=== PATIENT | male | born 1985 | race African-American/Black ===

== ENCOUNTER 2017-07-03 07:07 | Emergency (ER) | payer MEDICAID ==
[~2017-07-03] VITALS: Ht 165.1 cm; Wt 68.0 kg
[2017-07-03 07:37] VITALS: BP 120/96
== END 2017-07-03 09:15 | disposition left against medical advice (07) ==
LOC: ER 09:15
DX: M79.671 Pain in right foot (principal); Z53.21 Procedure and treatment not carried out due to patient leaving prior to being seen by health care provider

== ENCOUNTER 2022-12-15 19:17 | Inpatient (IN) | payer MEDICAID, OTHER ==
[~2022-12-15] VITALS: Ht 172.7 cm; Wt 74.8 kg
[2022-12-16] MEDS ORDERED: METHYLPREDNISOLONE SOD SUCC 125 MG/2 ML VIAL IV STA (00:05)
[2022-12-16] MEDS ORDERED: IPRATROPIUM BROMIDE (0.02%) 0.5MG/2.5ML NEB HHN STA (00:05)
[2022-12-16] MEDS ORDERED: ALBUTEROL (0.083%) 2.5MG/3ML NEB HHN STA (00:05)
[2022-12-16] MEDS ORDERED: SODIUM CHLORIDE 0.9% 1000ML BAG (SEPSIS BOLUS) IV ONE (00:15)
[2022-12-16] MEDS ORDERED: LEVOFLOXACIN 750MG PREMIX 150 ML IV ONE (01:15)
[2022-12-16 01:16] LABS: BASOPHILS % 0.9 % (0.0-2.0); EOSINOPHILS % 7.9 % (0.0-5.0); HEMATOCRIT. 41.3 % (42.0-52.0); HEMOGLOBIN. 13.8 g/dL (14.0-18.0); LYMPHOCYTES % 31.5 % (20.0-50.0); MEAN CORPUSCULAR HEMOGLOBIN 26.8 pg (28.0-32.0); MEAN PLATELET VOLUME 9.2 fl (7.4-10.4); MONOCYTES % 5.5 % (2.0-8.0); NEUTROPHILS % 54.2 % (40.0-76.0); PLATELET 245 x1000/uL (130-400); RED BLOOD CELL COUNT 5.17 mill/uL (4.7-6.1); RED CELL DISTRIBUTION WIDTH 14.5 % (11.6-14.6)
[2022-12-16 01:18] LABS: CHLORIDE 104 mEq/L (98-107)
[2022-12-16] MEDS: METHYLPREDNISOLONE SOD SUCC 40 MG/ML VIAL IV SCH (17:00)
[2022-12-16] MEDS ORDERED: GUAIFENESIN 200MG/10ML SUGAR FREE UDC PO PRN (17:00)
[2022-12-16] MEDS ORDERED: ACETAMINOPHEN 325MG TABLET PO PRN (17:00)
[2022-12-16] MEDS ORDERED: ONDANSETRON HCL 4MG/2ML INJ IV PRN (17:00)
[2022-12-16] MEDS ORDERED: IPRATROPIUM/ALBUTEROL 0.5-3(2.5)MG/3ML NEB HHN PRN (17:00)
[2022-12-16] MEDS ORDERED: IPRATROPIUM BROMIDE (0.02%) 0.5MG/2.5ML NEB HHN PRN (17:15)
[2022-12-16] MEDS ORDERED: ALBUTEROL (0.083%) 2.5MG/3ML NEB HHN PRN (17:15)
[2022-12-16] MEDS ORDERED: CEFTRIAXONE 1 G PREMIX 50 ML IV SCH (17:30)
[2022-12-16] MEDS ORDERED: AZITHROMYCIN 500MG/250ML 250 ML IV SCH (18:00)
[2022-12-16] MEDS ORDERED: GUAIFENESIN-DM 200MG-20MG/10ML UDC PO PRN (18:45)
[2022-12-16] MEDS ORDERED: FLUTICASONE PROPIONATE 50MCG/SPRAY BOTTLE BOTHNSTRLS SCH (21:00)
[2022-12-16] MEDS: BUDESONIDE 0.5MG/2ML NEB HHN SCH (22:40)
[2022-12-17] MEDS ORDERED: IPRATROPIUM/ALBUTEROL 0.5-3(2.5)MG/3ML NEB HHN SCH
[2022-12-17 00:10] VITALS: BP 122/72
[2022-12-17] MEDS: METHYLPREDNISOLONE SOD SUCC 40 MG/ML VIAL IV SCH ×2 (01:26→09:04)
[2022-12-17 04:00] VITALS: BP 123/78
[2022-12-17 06:59] LABS: BASOPHILS % 0.3 % (0.0-2.0); EOSINOPHILS % 0.1 % (0.0-5.0); HEMATOCRIT. 40.9 % (42.0-52.0); HEMOGLOBIN. 13.5 g/dL (14.0-18.0); LYMPHOCYTES % 13.3 % (20.0-50.0); MEAN CORPUSCULAR HEMOGLOBIN 26.4 pg (28.0-32.0); MEAN PLATELET VOLUME 9.2 fl (7.4-10.4); NEUTROPHILS % 84.3 % (40.0-76.0); PLATELET 239 x1000/uL (130-400); RED BLOOD CELL COUNT 5.11 mill/uL (4.7-6.1); RED CELL DISTRIBUTION WIDTH 14.9 % (11.6-14.6)
[2022-12-17 07:38] LABS: CHLORIDE 102 mEq/L (98-107)
[2022-12-17 08:00] VITALS: BP 112/74
[2022-12-17] MEDS: ALBUTEROL (0.083%) 2.5MG/3ML NEB HHN SCH ×2 (09:50→16:15)
[2022-12-17] MEDS: IPRATROPIUM BROMIDE (0.02%) 0.5MG/2.5ML NEB HHN SCH ×2 (09:50→16:15)
[2022-12-17 12:00] VITALS: BP 138/66
[2022-12-17] MEDS ORDERED: ALBU6.7H3 INH ×2 (12:39→13:57)
[2022-12-17] MEDS ORDERED: P20 MT (12:39)
[2022-12-17] MEDS ORDERED: MED4 MT (13:57)
[2022-12-17] MEDS ORDERED: AZIT250T12 MT (13:57)
[2022-12-17] MEDS ORDERED: CEFTRIAXONE 1,000 MG in DEXTROSE 5% WATER 50 ML IV SCH (14:00)
[2022-12-17] MEDS ORDERED: AZITHROMYCIN 500 MG in DEXT 5% WATER 250 ML IV SCH (15:00)
[2022-12-17 15:40] VITALS: BP 138/66
[2022-12-17 16:00] VITALS: BP 138/66
[2022-12-17] MEDS: BUDESONIDE 0.5MG/2ML NEB HHN SCH (16:15)
== END 2022-12-17 17:45 | disposition home or self-care (01) | DRG 139 ==
LOC: ER 19:17 → MICUSO 12-16 01:40 → EDBEDREQ 12-16 01:43 → EDBEDREQTM 12-16 01:43 → 6EST 12-17 00:13
PROVIDERS: ADMIT Internal Medicine; ATTEND Internal Medicine
DX: J18.9 Pneumonia, unspecified organism (principal); J96.00 Acute respiratory failure, unspecified whether with hypoxia or hypercapnia; J45.901 Unspecified asthma with (acute) exacerbation; F31.81 Bipolar II disorder; D72.10 Eosinophilia, unspecified; Z20.822 Contact with and (suspected) exposure to COVID-19; R74.01 Elevation of levels of liver transaminase levels
CPT/HCPCS: 36415; 71045; 76700; 80053; 82248; 83605; 83880; 84145; 84484; 85025; 87426; 87804; 93005; 94640; 94644; 99285; C9803; J0456; J0696; J1956; J2920; J2930; J7030; J7060; J7626

== ENCOUNTER 2025-03-27 02:39 | Emergency (ER) | payer MEDICAID ==
[~2025-03-27] VITALS: Ht 167.6 cm; Wt 70.0 kg
[~2025-03-27 02:39] MED LIST: ALBU6.7H3 INH; AZIT250T12 MT; METH4TAB95 MT; P20 MT
[2025-03-27 02:41] VITALS: BP 127/82; PULSE 75; RESP 16; TEMP 36.9; O2SAT 98
== END 2025-03-27 05:46 | disposition home or self-care (01) ==
LOC: ER 02:39
DX: Z00.00 Encounter for general adult medical examination without abnormal findings (principal); Z79.899 Other long term (current) drug therapy
CPT/HCPCS: 99283